=== PATIENT | female | born 1975 | race African-American/Black ===

== ENCOUNTER 2018-07-23 09:54 | Emergency (ER) | payer OTHER ==
[~2018-07-23] VITALS: Ht 167.6 cm; Wt 110.0 kg
[2018-07-23] MEDS ORDERED: DIPHENHYDRAMINE 50MG CAPSULE PO ONE (10:30)
[2018-07-23] MEDS ORDERED: FAMOTIDINE 20MG/2ML VIAL IV ONE (10:30)
[2018-07-23] MEDS ORDERED: METHYLPREDNISOLONE SOD SUCC 125 MG/2 ML VIAL IV ONE (10:30)
[2018-07-23 11:44] VITALS: BP 184/119
== END 2018-07-23 12:07 | disposition home or self-care (01) ==
LOC: ER 09:54
DX: T78.1XXA Other adverse food reactions, not elsewhere classified, initial encounter (principal); L50.8 Other urticaria; F17.210 Nicotine dependence, cigarettes, uncomplicated; Z91.010 Allergy to peanuts; X58.XXXA Exposure to other specified factors, initial encounter
CPT/HCPCS: 96374; 96375; 99283; J2930; J3490; Q0163

== ENCOUNTER 2021-03-25 07:11 | Emergency (ER) | payer MEDICAID, OTHER ==
[~2021-03-25] VITALS: Ht 167.6 cm; Wt 126.0 kg
[2021-03-25 07:30] VITALS: BP 180/92
[2021-03-25] MEDS ORDERED: IPRATROPIUM BROMIDE (0.02%) 0.5MG/2.5ML NEB HHN STA (08:34)
[2021-03-25] MEDS ORDERED: ALBUTEROL (0.083%) 2.5MG/3ML NEB HHN SCH (09:00)
[2021-03-25] MEDS ORDERED: ALBUTEROL 6.7GM HFA INHALER ORI ONE (09:45)
[2021-03-25] MEDS ORDERED: IBUP-2028 MT (10:20)
[2021-03-25] MEDS ORDERED: BENZ-16 MT (10:20)
== END 2021-03-25 10:31 | disposition home or self-care (01) ==
LOC: ER 07:11
DX: J06.9 Acute upper respiratory infection, unspecified (principal); R50.9 Fever, unspecified; I49.8 Other specified cardiac arrhythmias; E11.9 Type 2 diabetes mellitus without complications; Z20.822 Contact with and (suspected) exposure to COVID-19
CPT/HCPCS: 71046; 87426; 93005; 99285

== ENCOUNTER 2021-08-11 23:16 | Emergency (ER) | payer MEDICAID ==
[~2021-08-11] VITALS: Ht 170.2 cm; Wt 129.7 kg
[~2021-08-11 23:16] MED LIST: BENZ-16 MT; IBUP-2028 MT
[2021-08-11 23:39] VITALS: BP 183/115
[2021-08-12 02:08] LABS: CLARITY URINE CLEAR (CLEAR); COLOR URINE YELLOW (YELLOW); KETONES URINE NEGATIVE (NEGATIVE); LEUKOCYTE ESTERASE URINE NEGATIVE (NEGATIVE); NITRITE URINE NEGATIVE (NEGATIVE); OCCULT BLOOD URINE NEGATIVE (NEGATIVE); PROTEIN URINE NEGATIVE (NEGATIVE); SPECIFIC GRAVITY URINE 1.037 (1.005-1.030); UROBILINOGEN URINE 0.2 E.U./dL (0.2-1.0)
[2021-08-12] MEDS ORDERED: METR-167 MT (02:53)
[2021-08-15 04:06] LABS: NEISSERIA GONORRHOEAE NAA Negative (Negative)
== END 2021-08-12 02:57 | disposition home or self-care (01) ==
LOC: ER 23:16
DX: N76.0 Acute vaginitis (principal)
CPT/HCPCS: 81003; 87210; 87491; 87591; 99283; Z7610

== ENCOUNTER 2021-08-17 20:10 | Emergency (ER) | payer MEDICAID ==
[~2021-08-17] VITALS: Ht 167.6 cm; Wt 130.1 kg
[~2021-08-17 20:10] MED LIST changes: +METR-167 MT
[2021-08-17 21:05] VITALS: BP 159/101
== END 2021-08-17 23:16 | disposition home or self-care (01) ==
LOC: ER 20:10
DX: B34.9 Viral infection, unspecified (principal); E11.9 Type 2 diabetes mellitus without complications; I10 Essential (primary) hypertension; Z20.822 Contact with and (suspected) exposure to COVID-19
CPT/HCPCS: 71045; 87426; 99284; C9803

== ENCOUNTER 2021-09-16 13:58 | Emergency (ER) | payer MEDICAID ==
[~2021-09-16] VITALS: Ht 167.6 cm; Wt 125.0 kg
[2021-09-16] MEDS ORDERED: METHOCARBAMOL 750MG TABLET PO SCH (17:30)
[2021-09-16] MEDS ORDERED: KETOROLAC 60MG/2ML VIAL IM ONE (17:30)
[2021-09-16] MEDS ORDERED: LIDOCAINE 5% PATCH TOP SCH (17:30)
[2021-09-16] MEDS ORDERED: KETOROLAC 30MG/ML VIAL IM NR (17:30)
[2021-09-16] MEDS ORDERED: LIDO1ADH23 TP (18:05)
[2021-09-16] MEDS ORDERED: METH-653 MT (18:05)
[2021-09-16] MEDS ORDERED: IBUP-2028 MT (18:05)
[2021-09-16 18:13] VITALS: BP 125/78
== END 2021-09-16 18:13 | disposition home or self-care (01) ==
LOC: ER 13:58
DX: S39.012A Strain of muscle, fascia and tendon of lower back, initial encounter (principal); M51.26 Other intervertebral disc displacement, lumbar region; I10 Essential (primary) hypertension; E11.9 Type 2 diabetes mellitus without complications; Y93.E5 Activity, floor mopping and cleaning; Y93.89 Activity, other specified; Y92.9 Unspecified place or not applicable
CPT/HCPCS: 81025; 96372; 99283; J1885

== ENCOUNTER 2021-09-21 10:22 | Emergency (ER) | payer MEDICAID ==
[~2021-09-21] VITALS: Ht 167.6 cm; Wt 125.0 kg
[~2021-09-21 10:22] MED LIST changes: +LIDO1ADH23 TP; +METH-653 MT
[2021-09-21 10:24] VITALS: BP 159/110
[2021-09-21] MEDS ORDERED: IBUPROFEN 600MG TABLET PO STA (11:14)
[2021-09-21] MEDS ORDERED: NAPR-681 PO (12:45)
[2021-09-21] MEDS ORDERED: D-ME473S50 PO (12:45)
== END 2021-09-21 12:58 | disposition home or self-care (01) ==
LOC: ER 10:22
DX: J06.9 Acute upper respiratory infection, unspecified (principal); E11.9 Type 2 diabetes mellitus without complications; I10 Essential (primary) hypertension; Z20.822 Contact with and (suspected) exposure to COVID-19
CPT/HCPCS: 81025; 87426; 99283; C9803

== ENCOUNTER 2022-01-07 06:55 | Emergency (ER) | payer MEDICAID ==
[~2022-01-07] VITALS: Ht 167.6 cm; Wt 127.7 kg
[~2022-01-07 06:55] MED LIST changes: +D-ME473S50 PO; +NAPR-681 PO
[2022-01-07] MEDS ORDERED: ONDANSETRON 4MG ODT PO ONE (08:15)
[2022-01-07] MEDS ORDERED: AZITHROMYCIN 500 MG TABLET PO ONE (08:30)
[2022-01-07] MEDS ORDERED: SODIUM CHLORIDE 0.9% 1,000 ML IV ONE ×2 (08:30→11:15)
[2022-01-07] MEDS ORDERED: INSULIN REGULAR (HUMULIN R) UD 100 UNITS/ML SYR SUBCUT ONE ×2 (08:30→11:15)
[2022-01-07] MEDS ORDERED: METF-414 MT (08:35)
[2022-01-07] MEDS ORDERED: INSULIN REGULAR (HUMULIN R) 300UNITS/3ML VIAL SUBCUT SCH (09:15)
[2022-01-07 09:53] LABS: CHLORIDE 89 mEq/L (98-107)
[2022-01-07 09:59] LABS: BETA HYDROXYBUTYRATE 0.3 mMol/L (0.0-0.3)
[2022-01-07 10:05] LABS: HCG SCREEN NEGATIVE
[2022-01-07 10:58] LABS: BASOPHILS % 0.6 % (0.0-2.0); EOSINOPHILS % 2.5 % (0.0-5.0); HEMATOCRIT. 43.2 % (36.0-48.0); HEMOGLOBIN. 14.5 g/dL (12.0-16.0); LYMPHOCYTES % 31.4 % (20.0-50.0); MEAN CORPUSCULAR HEMOGLOBIN 29.2 pg (28.0-32.0); MEAN CORPUSCULAR VOLUME 87.2 fL (81.0-99.0); MEAN PLATELET VOLUME 9.9 fl (7.4-10.4); MONOCYTES % 8.4 % (2.0-8.0); NEUTROPHILS % 57.1 % (40.0-76.0); PLATELET 352 x1000/uL (130-400); RED BLOOD CELL COUNT 4.96 mill/uL (4.2-5.4); RED CELL DISTRIBUTION WIDTH 13.3 % (11.6-14.6)
[2022-01-07] MEDS ORDERED: AZITHROMYCIN 500 MG TABLET PO SCH (11:45)
[2022-01-07] MEDS ORDERED: INSULIN REGULAR (HUMULIN R) 300UNITS/3ML VIAL SUBCUT NR (11:45)
[2022-01-07 14:10] VITALS: BP 159/98
== END 2022-01-07 14:09 | disposition home or self-care (01) ==
LOC: ER 06:55
DX: B34.9 Viral infection, unspecified (principal); E11.65 Type 2 diabetes mellitus with hyperglycemia; I10 Essential (primary) hypertension; J45.909 Unspecified asthma, uncomplicated; Z88.6 Allergy status to analgesic agent
CPT/HCPCS: 36415; 80048; 82010; 82962; 84703; 85025; 96360; 96361; 96372; 99284; J7030; Q0162; J1815

== ENCOUNTER 2022-02-15 00:42 | Emergency (ER) | payer MEDICAID ==
[~2022-02-15] VITALS: Ht 167.6 cm; Wt 126.0 kg
[~2022-02-15 00:42] MED LIST changes: +METF-414 MT
[2022-02-15 02:05] LABS: CHLORIDE 87 mEq/L (98-107)
[2022-02-15 02:09] LABS: BASOPHILS % 0.4 % (0.0-2.0); EOSINOPHILS % 3.3 % (0.0-5.0); HEMATOCRIT. 41.4 % (36.0-48.0); HEMOGLOBIN. 13.9 g/dL (12.0-16.0); LYMPHOCYTES % 34.2 % (20.0-50.0); MEAN CORPUSCULAR VOLUME 86.5 fL (81.0-99.0); MEAN PLATELET VOLUME 9.4 fl (7.4-10.4); MONOCYTES % 9.3 % (2.0-8.0); NEUTROPHILS % 52.8 % (40.0-76.0); PLATELET 290 x1000/uL (130-400); RED BLOOD CELL COUNT 4.79 mill/uL (4.2-5.4); RED CELL DISTRIBUTION WIDTH 13.4 % (11.6-14.6)
[2022-02-15 02:14] LABS: BETA HYDROXYBUTYRATE 0.2 mMol/L (0.0-0.3)
[2022-02-15] MEDS ORDERED: INSULIN REGULAR (HUMULIN R) 300UNITS/3ML VIAL SUBCUT NR (03:45)
[2022-02-15] MEDS ORDERED: METF-416 MT (05:10)
[2022-02-15 06:06] VITALS: BP 142/96
== END 2022-02-15 06:12 | disposition home or self-care (01) ==
LOC: ER 00:42
DX: E11.65 Type 2 diabetes mellitus with hyperglycemia (principal); I10 Essential (primary) hypertension; J45.909 Unspecified asthma, uncomplicated; Z79.899 Other long term (current) drug therapy
CPT/HCPCS: 36415; 80053; 82010; 82962; 85025; 96372; 99283; J1815

== ENCOUNTER 2022-07-14 16:18 | Emergency (ER) | payer MEDICAID ==
[~2022-07-14] VITALS: Ht 167.6 cm; Wt 134.7 kg
[~2022-07-14 16:18] MED LIST changes: +METF-416 MT
[2022-07-14] MEDS ORDERED: NAPR500T7 MT (19:42)
[2022-07-14] MEDS ORDERED: ACYC200C31 PO (19:42)
[2022-07-14 20:03] VITALS: BP 139/77
== END 2022-07-14 20:04 | disposition home or self-care (01) ==
LOC: ER 16:18
DX: R21 Rash and other nonspecific skin eruption (principal); B02.9 Zoster without complications; J45.909 Unspecified asthma, uncomplicated; E11.9 Type 2 diabetes mellitus without complications; I10 Essential (primary) hypertension; Z79.899 Other long term (current) drug therapy
CPT/HCPCS: 81025; 99283

== ENCOUNTER 2022-11-12 20:30 | Emergency (ER) | payer MEDICAID ==
[~2022-11-12] VITALS: Ht 167.6 cm; Wt 134.1 kg
[~2022-11-12 20:30] MED LIST changes: +ACYC200C31 PO; +NAPR500T7 MT
[2022-11-12 20:35] VITALS: O2SAT 98
[2022-11-12 20:41] VITALS: BP 147/93
[2022-11-12] MEDS ORDERED: INSULIN REGULAR (HUMULIN R) 300UNITS/3ML VIAL SUBCUT ONE (20:45)
[2022-11-12 21:40] LABS: BASOPHILS % 0.4 % (0.0-2.0); EOSINOPHILS % 4.3 % (0.0-5.0); HEMATOCRIT. 37.6 % (36.0-48.0); HEMOGLOBIN. 12.5 g/dL (12.0-16.0); LYMPHOCYTES % 32.7 % (20.0-50.0); MEAN CORPUSCULAR HEMOGLOBIN 29.1 pg (28.0-32.0); MEAN CORPUSCULAR HGB CONC 33.3 g/dL (31.0-37.0); MEAN CORPUSCULAR VOLUME 87.5 fL (81.0-99.0); MEAN PLATELET VOLUME 9.4 fl (7.4-10.4); MONOCYTES % 7.1 % (2.0-8.0); NEUTROPHILS % 55.5 % (40.0-76.0); PLATELET 312 x1000/uL (130-400); RED BLOOD CELL COUNT 4.29 mill/uL (4.2-5.4); RED CELL DISTRIBUTION WIDTH 13.3 % (11.6-14.6); WHITE BLOOD COUNT 9.2 x1000/uL (4.5-11.0)
[2022-11-12 21:57] LABS: CHLORIDE 96 mEq/L (98-107); INDEX HEMOLYSI 1 (1-3); INDEX ICTERIC 1 (1-4); INDEX LIPEMIC 1 (1-3); POTASSIUM 4.2 mEq/L (3.5-5.1); SODIUM 131 mEq/L (136-145)
[2022-11-12 22:14] LABS: ALANINE AMINOTRANSFERASE 42 IU/L (13-61); ASPARTATE AMINOTRANSFERASE 22 IU/L (15-37); BETA HYDROXYBUTYRATE 0.2 mMol/L (0.0-0.3); BILIRUBIN TOTAL 0.3 mg/dL (0.1-1.0); CALCIUM 9.4 mg/dL (8.5-10.1); CARBON DIOXIDE 25 mEq/L (21-32); CREATININE 1.4 mg/dL (0.6-1.3); GLUCOSE 398 mg/dL (70-105); PROTEIN TOTAL 8.7 g/dL (6.0-8.3); UREA NITROGEN BLOOD 34 mg/dL (7-21)
[2022-11-12] MEDS ORDERED: METF-873 MT (22:58)
[2022-11-12 23:30] VITALS: PULSE 100; RESP 16; TEMP 98.7
== END 2022-11-12 23:34 | disposition home or self-care (01) ==
LOC: ER 20:30
DX: E11.65 Type 2 diabetes mellitus with hyperglycemia (principal); I10 Essential (primary) hypertension; Z88.6 Allergy status to analgesic agent; Z91.013 Allergy to seafood; Z88.8 Allergy status to other drugs, medicaments and biological substances
CPT/HCPCS: 36415; 80053; 82010; 82962; 85025; 99283

== ENCOUNTER 2023-03-09 17:21 | Emergency (ER) | payer MEDICAID ==
[~2023-03-09] VITALS: Ht 168.9 cm; Wt 124.0 kg
[~2023-03-09 17:21] MED LIST changes: +METF-873 MT
[2023-03-09 17:48] VITALS: O2SAT 99
[2023-03-09] MEDS ORDERED: ONDANSETRON 4MG ODT PO ONE (18:00)
[2023-03-09 18:15] LABS: BASOPHILS % 0.3 % (0.0-2.0); EOSINOPHILS % 3.2 % (0.0-5.0); HEMATOCRIT. 39.9 % (36.0-48.0); LYMPHOCYTES % 23.6 % (20.0-50.0); MEAN CORPUSCULAR HEMOGLOBIN 28.8 pg (28.0-32.0); MEAN CORPUSCULAR HGB CONC 32.7 g/dL (31.0-37.0); MEAN PLATELET VOLUME 8.9 fl (7.4-10.4); MONOCYTES % 6.3 % (2.0-8.0); NEUTROPHILS % 66.6 % (40.0-76.0); PLATELET 323 x1000/uL (130-400); RED BLOOD CELL COUNT 4.53 mill/uL (4.2-5.4); RED CELL DISTRIBUTION WIDTH 13.2 % (11.6-14.6); WHITE BLOOD COUNT 13.6 x1000/uL (4.5-11.0)
[2023-03-09 18:25] LABS: HCG SCREEN NEGATIVE
[2023-03-09 18:31] LABS: ALANINE AMINOTRANSFERASE 20 IU/L (10-49); ALBUMIN 4.6 g/dL (3.2-4.8); ASPARTATE AMINOTRANSFERASE 17 IU/L (<34); BILIRUBIN TOTAL 0.4 mg/dL (0.1-1.0); CALCIUM 9.7 mg/dL (8.7-10.4); CARBON DIOXIDE 25 mEq/L (21-32); CHLORIDE 99 mEq/L (98-107); CREATININE 1.3 mg/dL (0.6-1.0); GLUCOSE 256 mg/dL (70-105); POTASSIUM 3.9 mEq/L (3.5-5.1); PROTEIN TOTAL 8.1 g/dL (6.0-8.3); SODIUM 134 mEq/L (136-145); UREA NITROGEN BLOOD 20 mg/dL (9-23)
[2023-03-09] MEDS: ONDANSETRON 4MG ODT PO NR (20:56)
[2023-03-09] MEDS: SODIUM CHLORIDE 0.9% 1,000 ML IV NR (20:56)
[2023-03-09] MEDS ORDERED: IOHEXOL-300 100 ML BOTTLE ONE (21:03)
[2023-03-09] MEDS ORDERED: ONDA4TAB11 PO (22:22)
[2023-03-09 22:27] VITALS: BP 132/73; PULSE 94; RESP 18; TEMP 98.5
== END 2023-03-09 22:29 | disposition home or self-care (01) ==
LOC: ER 17:21
DX: R19.7 Diarrhea, unspecified (principal); I10 Essential (primary) hypertension; E11.9 Type 2 diabetes mellitus without complications; Z79.899 Other long term (current) drug therapy
CPT/HCPCS: 80053; 82010; 84703; 83605; 83690; 85025; 36415; 74177; 96360; 99285; Q9967; Q0162; Z7610 ×3

== ENCOUNTER 2023-04-07 07:13 | Emergency (ER) | payer MEDICAID ==
[~2023-04-07] VITALS: Ht 170.2 cm; Wt 130.0 kg
[~2023-04-07 07:13] MED LIST changes: +ONDA4TAB11 PO
[2023-04-07 07:40] VITALS: O2SAT 100
[2023-04-07] MEDS: ONDANSETRON 4MG ODT PO ONE (08:30)
[2023-04-07] MEDS ORDERED: FAMO-135 MT (09:51)
[2023-04-07] MEDS ORDERED: ONDA4TAB50 MT (09:51)
[2023-04-07 10:05] VITALS: BP 124/87; PULSE 98; RESP 18; TEMP 98.4
== END 2023-04-07 10:06 | disposition home or self-care (01) ==
LOC: ER 07:13
DX: R11.0 Nausea (principal); R19.7 Diarrhea, unspecified; E11.9 Type 2 diabetes mellitus without complications; I10 Essential (primary) hypertension; Z88.6 Allergy status to analgesic agent; Z91.013 Allergy to seafood; Z79.899 Other long term (current) drug therapy
CPT/HCPCS: 81025; 99283; Q0162; Z7610

== ENCOUNTER 2023-07-14 16:58 | Emergency (ER) | payer MEDICAID ==
[~2023-07-14] VITALS: Ht 172.7 cm; Wt 114.0 kg
[~2023-07-14 16:58] MED LIST changes: +FAMO-135 MT; +ONDA4TAB50 MT
[2023-07-14 17:13] VITALS: TEMP 98.1; O2SAT 96
[2023-07-14] MEDS ORDERED: BENZ200C52 MT (17:54)
[2023-07-14 18:13] VITALS: BP 135/75; PULSE 76; RESP 20
== END 2023-07-14 18:15 | disposition home or self-care (01) ==
LOC: ER 16:58
DX: R05.9 Cough, unspecified (principal); I10 Essential (primary) hypertension; E11.9 Type 2 diabetes mellitus without complications; Z88.6 Allergy status to analgesic agent; Z91.011 Allergy to milk products; Z91.013 Allergy to seafood; Z79.899 Other long term (current) drug therapy; Z98.890 Other specified postprocedural states
CPT/HCPCS: 71045; 99283

== ENCOUNTER 2023-08-31 07:02 | Emergency (ER) | payer MEDICAID ==
[~2023-08-31] VITALS: Ht 172.7 cm; Wt 118.0 kg
[~2023-08-31 07:02] MED LIST changes: +BENZ200C52 MT
[2023-08-31 07:09] VITALS: O2SAT 100
[2023-08-31] MEDS: IBUPROFEN 400MG TABLET PO ONE (07:50)
[2023-08-31] MEDS ORDERED: IBUP-2028 PO (08:51)
[2023-08-31 08:54] VITALS: BP 115/86; PULSE 88; RESP 20; TEMP 98.2
== END 2023-08-31 10:13 | disposition home or self-care (01) ==
LOC: ER 07:02
DX: S93.401A Sprain of unspecified ligament of right ankle, initial encounter (principal); W50.2XXA Accidental twist by another person, initial encounter; Y93.89 Activity, other specified; Y92.89 Other specified places as the place of occurrence of the external cause; Y99.8 Other external cause status
CPT/HCPCS: 73620; 99283; Z7610

== ENCOUNTER 2023-12-14 07:20 | Emergency (ER) | payer MEDICAID ==
[~2023-12-14] VITALS: Ht 167.6 cm; Wt 127.0 kg
[~2023-12-14 07:20] MED LIST changes: +IBUP-2028 PO; +METF-1149 MT; -METF-873 MT; +NAPR-1486 MT; -NAPR500T7 MT; +ONDA-239 PO; -ONDA4TAB11 PO
[2023-12-14 07:26] VITALS: O2SAT 98
[2023-12-14] MEDS ORDERED: ACETAMINOPHEN 325MG TABLET PO ONE (07:45)
[2023-12-14] MEDS ORDERED: AMOX1TAB16 MT (08:42)
[2023-12-14] MEDS: ACETAMINOPHEN 325MG TABLET PO NR (09:15)
[2023-12-14] MEDS: TETRACAINE/BENZOCAINE/BUTAMBEN 20 GM SPRAY MM NR (10:15)
[2023-12-14 10:35] VITALS: TEMP 37.28076
[2023-12-14 12:00] VITALS: BP 177/106; PULSE 89; RESP 15; O2SAT 98
== END 2023-12-14 12:17 | disposition home or self-care (01) ==
LOC: ER 07:29
DX: J36 Peritonsillar abscess (principal); I10 Essential (primary) hypertension; E11.9 Type 2 diabetes mellitus without complications; Z79.84 Long term (current) use of oral hypoglycemic drugs; Z79.1 Long term (current) use of non-steroidal anti-inflammatories (NSAID); Z88.6 Allergy status to analgesic agent
CPT/HCPCS: 70490; 42700; 99284; Z7610

== ENCOUNTER 2024-01-05 07:18 | Emergency (ER) | payer MEDICAID ==
[~2024-01-05] VITALS: Ht 170.2 cm; Wt 95.0 kg
[~2024-01-05 07:18] MED LIST changes: +AMOX1TAB16 MT
[2024-01-05 07:23] VITALS: O2SAT 96
[2024-01-05] MEDS ORDERED: DEXAMETHASONE 1MG TABLET PO ONE (07:45)
[2024-01-05 08:00] VITALS: BP 151/94; PULSE 88; RESP 18; TEMP 36.83628; O2SAT 96
[2024-01-05] MEDS: ACETAMINOPHEN 325MG TABLET PO ONE (08:01)
[2024-01-05] MEDS ORDERED: DEXAMETHASONE 4MG TABLET PO NR (09:00)
== END 2024-01-05 08:52 | disposition home or self-care (01) ==
LOC: ER 07:25
DX: J02.9 Acute pharyngitis, unspecified (principal); S76.311A Strain of muscle, fascia and tendon of the posterior muscle group at thigh level, right thigh, initial encounter; E11.9 Type 2 diabetes mellitus without complications; I10 Essential (primary) hypertension; Z88.6 Allergy status to analgesic agent; Z91.011 Allergy to milk products; Z91.013 Allergy to seafood; Z79.899 Other long term (current) drug therapy; X58.XXXA Exposure to other specified factors, initial encounter; Y93.89 Activity, other specified; Y92.89 Other specified places as the place of occurrence of the external cause; Y99.8 Other external cause status
CPT/HCPCS: 99283; J8540

== ENCOUNTER 2024-03-12 07:32 | Emergency (ER) | payer MEDICAID ==
[~2024-03-12] VITALS: Ht 170.2 cm; Wt 118.0 kg
[2024-03-12 07:56] VITALS: O2SAT 99
[2024-03-12] MEDS ORDERED: CYCL10TA21 MT (10:10)
[2024-03-12 10:26] VITALS: BP 145/98; PULSE 90; RESP 18; TEMP 36.8; O2SAT 99
== END 2024-03-12 10:31 | disposition home or self-care (01) ==
LOC: ER 07:42
DX: S86.811A Strain of other muscle(s) and tendon(s) at lower leg level, right leg, initial encounter (principal); E11.9 Type 2 diabetes mellitus without complications; I10 Essential (primary) hypertension; Z79.84 Long term (current) use of oral hypoglycemic drugs; Z79.1 Long term (current) use of non-steroidal anti-inflammatories (NSAID); Z88.6 Allergy status to analgesic agent; X58.XXXA Exposure to other specified factors, initial encounter; Y93.89 Activity, other specified; Y92.89 Other specified places as the place of occurrence of the external cause; Y99.8 Other external cause status
CPT/HCPCS: 93971; 99284

== ENCOUNTER 2024-04-09 04:16 | Emergency (ER) | payer MEDICAID ==
[~2024-04-09] VITALS: Ht 170.2 cm; Wt 122.0 kg
[~2024-04-09 04:16] MED LIST changes: +CYCL10TA21 MT
[2024-04-09 04:20] VITALS: O2SAT 100
[2024-04-09 04:25] VITALS: BP 156/116; PULSE 113; RESP 18; TEMP 36.7; O2SAT 98
[2024-04-09] MEDS: CYCLOBENZAPRINE 10MG TABLET PO ONE (05:02)
[2024-04-09] MEDS: ACETAMINOPHEN 500MG TABLET PO ONE (05:02)
[2024-04-09] MEDS: LIDOCAINE 5% PATCH TOP SCH (05:02)
[2024-04-09] MEDS ORDERED: LIDO700A15 TP (05:05)
[2024-04-09] MEDS ORDERED: CYCL5TAB3 MT (05:05)
== END 2024-04-09 05:37 | disposition home or self-care (01) ==
LOC: ER 04:16
DX: M54.31 Sciatica, right side (principal); R29.898 Other symptoms and signs involving the musculoskeletal system; E11.9 Type 2 diabetes mellitus without complications; I10 Essential (primary) hypertension; Z79.1 Long term (current) use of non-steroidal anti-inflammatories (NSAID); Z79.84 Long term (current) use of oral hypoglycemic drugs; Z88.6 Allergy status to analgesic agent; X58.XXXA Exposure to other specified factors, initial encounter; Y93.89 Activity, other specified; Y92.89 Other specified places as the place of occurrence of the external cause; Y99.8 Other external cause status
CPT/HCPCS: 99284

== ENCOUNTER 2024-12-07 15:44 | Emergency (ER) | payer MEDICAID ==
[~2024-12-07] VITALS: Ht 167.6 cm; Wt 108.0 kg
[~2024-12-07 15:44] MED LIST changes: -ACYC200C31 PO; -AMOX1TAB16 MT; +ASPI-1497 PO; -BENZ-16 MT; -BENZ200C52 MT; +CHLO50TA PO; -CYCL10TA21 MT; -D-ME473S50 PO; -FAMO-135 MT; -IBUP-2028 MT; -IBUP-2028 PO; -LIDO1ADH23 TP; +LISI40TA21 PO; -METF-1149 MT; -METF-414 MT; -METF-416 MT; -METH-653 MT; -METR-167 MT; -NAPR-1486 MT; -NAPR-681 PO
[2024-12-07 16:17] VITALS: O2SAT 99
[2024-12-07] MEDS ORDERED: METHYLPREDNISOLONE SOD SUCC 125MG/2ML (ACT-O-VIAL) IV ONE (17:15)
[2024-12-07] MEDS ORDERED: KETOROLAC 30MG/ML VIAL IV ONE (17:15)
[2024-12-07 18:42] LABS: BASOPHILS % 0.6 % (0.0-2.0); EOSINOPHILS % 4.5 % (0.0-5.0); HEMATOCRIT. 39.5 % (36.0-48.0); HEMOGLOBIN. 12.9 g/dL (12.0-16.0); LYMPHOCYTES % 27.3 % (20.0-50.0); MEAN PLATELET VOLUME 9.0 fl (7.4-10.4); MONOCYTES % 8.1 % (2.0-8.0); NEUTROPHILS % 59.5 % (40.0-76.0); PLATELET 352 x1000/uL (130-400); RED BLOOD CELL COUNT 4.52 mill/uL (4.2-5.4); RED CELL DISTRIBUTION WIDTH 14.7 % (11.6-14.6)
[2024-12-07 19:00] LABS: UREA NITROGEN BLOOD 15.0 mg/dL (9-23)
[2024-12-07 19:03] LABS: CREATININE 1.6 mg/dL (0.6-1.0)
[2024-12-07 19:09] LABS: HCG SCREEN NEGATIVE
[2024-12-07] MEDS: KETOROLAC 30MG/ML VIAL IV NR (19:23)
[2024-12-07] MEDS: AMPICILLIN SOD/SULBACTAM NA 3 G in SODIUM CHLORIDE 0.9% 100 ML IV SCH (19:23)
[2024-12-07] MEDS: METHYLPREDNISOLONE SOD SUCC 125MG/2ML (ACT-O-VIAL) IV NR (19:23)
[2024-12-07 21:27] VITALS: BP 130/94; PULSE 94; RESP 18; TEMP 37.1; O2SAT 98
[2024-12-07] MEDS ORDERED: AMOX1TAB16 MT (21:56)
[2024-12-07] MEDS ORDERED: IBUP-1455 MT (21:56)
== END 2024-12-07 21:55 | disposition home or self-care (01) ==
LOC: ER 15:44
DX: J36 Peritonsillar abscess (principal); I10 Essential (primary) hypertension; Z79.899 Other long term (current) drug therapy; Z91.013 Allergy to seafood
CPT/HCPCS: 99284; 96365; 96375; 80048; 84703; 85025; 36415; J1885; J2919; J0295; J7050; A6449